=== PATIENT | female | born 1975 | race Caucasian/White ===

== ENCOUNTER 2021-01-22 17:20 | Emergency (ER) | payer MEDICAID ==
[~2021-01-22] VITALS: Ht 154.9 cm; Wt 77.1 kg
[2021-01-22 17:30] VITALS: BP 132/78
--- NOTE | 2021-01-22 17:35 | NUR ---
45 Y/O FEMALE BIBA FROM HOME C/C ALTERED. PER EMS, PT WAS DROPPED OFF AT HOME BY BOYFRIEND AND FAMILY FOUND HER ON GROUND ROLLING AROUND AND CRYING. WHEN MEDICS ARRIVED, PT WAS ROLLING ON THE GROUND, NOT RESPONDING TO QUESTIONS AND ONLY RESPONSIVE TO PAINFUL STIMULI. PT ADMITS TO ALCOHOL AND METH USE THIS MORNING. PT ANSWERING ALL QUESTIONS BUT REFUSING TO OPEN EYES. PMH:GASTRIC BYPASS ALLERGIES:CODEINE AND PCN
[2021-01-22] MEDS ORDERED: IBUPROFEN 400 MG TAB PO ONE (18:35)
[2021-01-22] MEDS ORDERED: ONDANSETRON 4 MG ODT PO ONE (18:35)
--- NOTE | 2021-01-22 19:16 | NUR ---
PATIENT REPORTS NO NAUSEA AND " I FEEL A LOT BETTER" AFTER POST DOCTORAL FELLOW. DENIES PAIN AT THIS TIME; 0/10. EMESIS PROVIDED.
[2021-01-22 20:18] LABS: BASOPHILS # (AUTO) 0.1 K/uL (0.00-0.22); BASOPHILS % (AUTO) 0.9 % (0.0-2.0); EOSINOPHILS % (AUTO) 0.7 % (0.0-4.0); HEMATOCRIT 21.2 % (36-48); LYMPHOCYTES # (AUTO) 0.9 K/uL (2.5-16.5); LYMPHOCYTES % (AUTO) 14.9 % (20.5-51.1); MEAN CORPUSCULAR HEMOGLOBIN 16 pg (27-31); MEAN CORPUSCULAR HGB CONC 29 g/dL (33-37); MEAN CORPUSCULAR VOLUME 54.4 fL (80-94); MONOCYTES # (AUTO) 0.3 K/uL (0.8-1.0); MONOCYTES % (AUTO) 4.1 % (1.7-9.3); NEUTROPHILS # (AUTO) 4.9 K/uL (1.8-7.7); NEUTROPHILS % (AUTO) 79.4 % (42.2-75.2); PLATELET COUNT (AUTO) 292 K/uL (140-450); RED CELL DISTRIBUTION WIDTH 20.8 % (11.6-13.7); WHITE BLOOD COUNT (AUTO) 6.2 K/uL (4.8-10.8)
[2021-01-22 20:32] LABS: ALBUMIN 3.4 g/dL (3.4-5.0); ANION GAP 10.4 (8-16); CARBON DIOXIDE 26.9 mmol/L (21-32); CREATININE 0.6 mg/dL (0.6-1.3); POTASSIUM 4.3 mmol/L (3.5-5.1); TOTAL BILIRUBIN 0.4 mg/dL (0.0-1.0)
--- NOTE | 2021-01-22 20:45 | NUR ---
PT GAVE PERMISSION TO GIVE UPDATE TO MOTHER, CARLOS. UPDATE PROVIDED AT THIS TIME.
[2021-01-22 21:04] VITALS: BP 127/86
--- NOTE | 2021-01-22 21:04 | NUR ---
Patient discharged with v/s stable. Written and verbal after care instructions given and explained. Patient verbalized understanding. Ambulatory with steady gait. All questions addressed prior to discharge. Advised to follow up with PMD.
== END 2021-01-22 21:04 | disposition home or self-care (01) ==
LOC: MED 17:20
DX: R41.82 Altered mental status, unspecified (principal); D64.9 Anemia, unspecified; F19.10 Other psychoactive substance abuse, uncomplicated; R51.9 Headache, unspecified; F15.10 Other stimulant abuse, uncomplicated; Z88.0 Allergy status to penicillin; Z88.5 Allergy status to narcotic agent; W19.XXXA Unspecified fall, initial encounter; Y93.89 Activity, other specified; Y92.89 Other specified places as the place of occurrence of the external cause; Y99.8 Other external cause status
CPT/HCPCS: 36415; 80053; 85025; 99283; Q0162

== ENCOUNTER 2022-01-08 03:10 | Emergency (ER) | payer MEDICAID ==
[~2022-01-08] VITALS: Ht 154.9 cm; Wt 72.6 kg
[2022-01-08 03:13] VITALS: BP 131/86
--- NOTE | 2022-01-08 03:18 | NUR ---
Patient ambulated to bed 4.
--- NOTE | 2022-01-08 03:25 | NUR ---
Dr. Walsh assessing patient.
[2022-01-08] MEDS ORDERED: IBUPROFEN 600 MG TAB PO ONE (03:55)
[2022-01-08] MEDS ORDERED: HYDROcodone/APAP 5/325 MG 1 TAB TAB PO ONE (04:00)
[2022-01-08] MEDS ORDERED: SULFAMETH/TRIMETH DS 800/160MG 1 TAB PO ONE (04:00)
[2022-01-08] MEDS ORDERED: diphenhydrAMINE 50 MG CAP PO ONE (04:00)
[2022-01-08] MEDS ORDERED: IBUP-2213 PO (04:06)
[2022-01-08] MEDS ORDERED: SULF-59 PO (04:06)
[2022-01-08] MEDS ORDERED: ACET-8386 PO (04:06)
[2022-01-08] MEDS ORDERED: DIPH-915 PO (04:08)
--- NOTE | 2022-01-08 04:22 | NUR ---
Patient given medication. Patient educated on not driving due to taking [place] and benadryl. Patient verbalized understanding and stated, "My boyfriend Rhys is driving me home." Patient has no further questions.
--- NOTE | 2022-01-08 05:03 | NUR ---
Patient stated, "No pain."
[2022-01-08 05:13] VITALS: BP 122/71
== END 2022-01-08 05:14 | disposition home or self-care (01) ==
LOC: MED 03:10
DX: S60.460A Insect bite (nonvenomous) of right index finger, initial encounter (principal); T78.49XA Other allergy, initial encounter; L08.89 Other specified local infections of the skin and subcutaneous tissue; Z86.2 Personal history of diseases of the blood and blood-forming organs and certain disorders involving the immune mechanism; Z90.49 Acquired absence of other specified parts of digestive tract; Z98.890 Other specified postprocedural states; Z79.899 Other long term (current) drug therapy; Z79.1 Long term (current) use of non-steroidal anti-inflammatories (NSAID); Z79.891 Long term (current) use of opiate analgesic; Z79.2 Long term (current) use of antibiotics; Z88.0 Allergy status to penicillin; Z88.5 Allergy status to narcotic agent; W57.XXXA Bitten or stung by nonvenomous insect and other nonvenomous arthropods, initial encounter; Y92.89 Other specified places as the place of occurrence of the external cause; Y93.89 Activity, other specified; Y99.8 Other external cause status
CPT/HCPCS: 99284; Q0163

== ENCOUNTER 2022-01-11 19:42 | Emergency (ER) | payer MEDICAID ==
[~2022-01-11] VITALS: Ht 154.9 cm; Wt 68.5 kg
[~2022-01-11 19:42] MED LIST: ACET-8386 PO; DIPH-915 PO; IBUP-2213 PO; SULF-59 PO
[2022-01-11 20:00] VITALS: BP 138/88
--- NOTE | 2022-01-11 20:04 | NUR ---
PT TO BED 7
[2022-01-11] MEDS ORDERED: HYDROcodone/APAP 10/325 MG 1 TAB TAB PO ONE (20:20)
--- NOTE | 2022-01-11 20:38 | NUR ---
46YR OLD FEMALE BIB SELF C/O FINGER PAIN X 5DAYS. PT WAS SEEN HERE ON [facility] FOR SAME C/O . BUG BITE TO 1ST DIGIT R HAND. REDNESS SWELLING TO FINGER 6/10 PAIN LEVEL. DENIES INJURY OR TRAUMA. ABX STARTED ON LAST ER VISIT. PT IS A&OX4 BED AT LOWEST POSITION. CODIENE PCN NO MED HX
--- NOTE | 2022-01-11 20:44 | NUR ---
XRAY AT BEDSIDE
--- NOTE | 2022-01-11 22:26 | NUR ---
PT RESTING RESP EVEN AND UNLABORED. PAIN LEVEL 2/10. HOB ELEVATED. PENDING DISPO
[2022-01-11] MEDS ORDERED: HYDR-5080 PO (23:31)
[2022-01-11] MEDS ORDERED: BACI1PAC6 TP (23:31)
[2022-01-11] MEDS ORDERED: CEPH500C16 PO (23:31)
--- NOTE | 2022-01-11 23:41 | NUR ---
Patient discharged with v/s stable. Written and verbal after care instructions given and explained. Patient alert, oriented and verbalized understanding of instructions. Ambulatory with steady gait. All questions addressed prior to discharge. ID band removed. Patient advised to follow up with PMD. Rx of BACITRACIN OINT KEFLEX HYDROCODONE given.
[2022-01-11 23:42] VITALS: BP 130/70
--- NOTE | 2022-01-11 23:43 | NUR ---
The patient's care was reviewed and supervised by Josephine Todd RN.
== END 2022-01-11 23:41 | disposition home or self-care (01) ==
LOC: MED 19:42
DX: L02.511 Cutaneous abscess of right hand (principal); F17.200 Nicotine dependence, unspecified, uncomplicated; Z88.0 Allergy status to penicillin; Z88.5 Allergy status to narcotic agent; Z98.890 Other specified postprocedural states
CPT/HCPCS: 73130; 99283; Q0092

== ENCOUNTER 2022-08-02 01:41 | Emergency (ER) | payer MEDICAID ==
[~2022-08-02] VITALS: Ht 154.9 cm; Wt 67.6 kg
[~2022-08-02 01:41] MED LIST changes: -ACET-8386 PO; +ACET-8905 PO; +BACI-416 TP; +CEPH500C16 PO; +HYDR-5080 PO
[2022-08-02 01:45] VITALS: BP 160/90
--- NOTE | 2022-08-02 01:48 | NUR ---
TO LOBBY A/W BED AMBULATORY
[2022-08-02] MEDS ORDERED: IBUPROFEN 600 MG TAB PO ONE (03:25)
[2022-08-02] MEDS ORDERED: NAPR-1717 PO (04:08)
[2022-08-02] MEDS ORDERED: PENI500T20 PO (04:08)
--- NOTE | 2022-08-02 04:08 | NUR ---
Dr. Gamble examining patient.
[2022-08-02] MEDS ORDERED: CLIN300C52 PO (04:12)
[2022-08-02 04:15] VITALS: BP 136/82
--- NOTE | 2022-08-02 04:15 | NUR ---
Patient discharged with v/s stable. Written and verbal after care instructions given and explained by Dr. Gamble. Patient alert, oriented and verbalized understanding of instructions. Ambulatory with steady gait. All questions addressed prior to discharge. ID band removed. Patient advised to follow up with PMD. Rx of Clidamycin and Naproxen given. Patient educated on indication of medication including possible reaction and side effects. Opportunity to ask questions provided and answered.
== END 2022-08-02 04:15 | disposition home or self-care (01) ==
LOC: MED 01:41
DX: K08.89 Other specified disorders of teeth and supporting structures (principal); Z98.890 Other specified postprocedural states; Z79.1 Long term (current) use of non-steroidal anti-inflammatories (NSAID); Z79.2 Long term (current) use of antibiotics; Z79.891 Long term (current) use of opiate analgesic; Z88.0 Allergy status to penicillin; Z88.5 Allergy status to narcotic agent
CPT/HCPCS: 99283

== ENCOUNTER 2023-09-10 21:30 | Inpatient (IN) | payer SELFPAY ==
[~2023-09-10] VITALS: Ht 154.9 cm; Wt 70.3 kg
[~2023-09-10 21:30] MED LIST changes: -BACI-416 TP; +BACI-418 TP; +CLIN300C52 PO; +NAPR-1717 PO
[2023-09-10 21:45] VITALS: BP 149/64; PULSE 74; RESP 14; TEMP 98; O2SAT 96
[2023-09-10 21:50] VITALS: O2SAT 96
[2023-09-10 22:22] LABS: BASOPHILS % (AUTO) 1.2 % (0.0-2.0); EOSINOPHILS % (AUTO) 0.8 % (0.0-4.0); LYMPHOCYTES # (AUTO) 1.2 K/uL (2.5-16.5); LYMPHOCYTES % (AUTO) 32.7 % (20.5-51.1); MEAN CORPUSCULAR HEMOGLOBIN 15 pg (27-31); MEAN CORPUSCULAR HGB CONC 28 g/dL (33-37); MEAN CORPUSCULAR VOLUME 52.3 fL (80-94); MONOCYTES # (AUTO) 0.3 K/uL (0.8-1.0); NEUTROPHILS % (AUTO) 56.3 % (42.2-75.2); PLATELET COUNT (AUTO) 239 K/uL (140-450); RED BLOOD CELL COUNT(AUTO) 2.31 MIL/uL (4.20-5.40); RED CELL DISTRIBUTION WIDTH 21.6 % (11.6-13.7); WHITE BLOOD COUNT (AUTO) 3.5 K/uL (4.8-10.8)
[2023-09-10 22:31] LABS: HEMATOCRIT 12.1 % (36-48); HEMOGLOBIN 3.4 g/dL (12.0-16.0)
[2023-09-10 22:36] LABS: CALCIUM 7.8 mg/dL (8.5-10.1); CARBON DIOXIDE 27.2 mmol/L (21-32); CREATININE 0.7 mg/dL (0.6-1.3); INR 0.94 (0.8-1.2); POTASSIUM 4.2 mmol/L (3.5-5.1); PROTHROMBIN TIME 9.9 secs (10.8-13.4)
[2023-09-11] VITALS (7 sets, daily range): BP systolic 108–135; BP diastolic 52–79; PULSE 60–111; RESP 17–18; TEMP 97.8–99.7; O2SAT 97–99
[2023-09-11] MEDS ORDERED: guaiFENesin DM 200/20 MG-10 ML 10 ML UDC PO PRN (02:00)
[2023-09-11] MEDS ORDERED: ONDANSETRON 4 MG/2 ML VIAL IM/IVP PRN (02:00)
[2023-09-11] MEDS ORDERED: POTASSIUM CHLORIDE 10 MEQ TABER PO PRN (02:00)
[2023-09-11] MEDS ORDERED: ZOLPIDEM 5 MG TAB PO PRN (02:00)
[2023-09-11] MEDS ORDERED: DOCUSATE SODIUM 100 MG GELCAP PO PRN (02:00)
[2023-09-11] MEDS ORDERED: ACETAMINOPHEN 650 MG/20.3 ML UDC PO PRN (03:25)
[2023-09-11] MEDS: ACETAMINOPHEN 325 MG TAB PO PRN (03:52)
[2023-09-11] MEDS: NACL 0.9% 1,000 ML IV SCH (03:54)
[2023-09-11] MEDS: PANTOPRAZOLE 40 MG TABEC PO SCH (08:36)
[2023-09-11 14:21] LABS: EOSINOPHILS # (AUTO) 1.7 K/uL (0-0.4); HEMATOCRIT 22.8 % (36-48); MEAN CORPUSCULAR HEMOGLOBIN 20 pg (27-31); MEAN CORPUSCULAR HGB CONC 31 g/dL (33-37); MEAN CORPUSCULAR VOLUME 65.6 fL (80-94); NEUTROPHILS # (AUTO) 2.5 K/uL (1.8-7.7); PLATELET COUNT (AUTO) 203 K/uL (140-450); RED BLOOD CELL COUNT(AUTO) 3.48 MIL/uL (4.20-5.40)
[2023-09-11 14:38] LABS: ALBUMIN 2.7 g/dL (3.4-5.0); ANION GAP 11.6 (8-16); CALCIUM 7.1 mg/dL (8.5-10.1); CARBON DIOXIDE 26.1 mmol/L (21-32); CREATININE 0.6 mg/dL (0.6-1.3); MAGNESIUM 1.9 mg/dL (1.8-2.4); PHOSPHORUS 2.7 mg/dL (2.5-4.9); POTASSIUM 3.7 mmol/L (3.5-5.1); TOTAL BILIRUBIN 1.3 mg/dL (0.0-1.0); TOTAL PROTEIN, SERUM 5.9 g/dL (6.4-8.2)
[2023-09-11 15:41] LABS: WHITE BLOOD COUNT (AUTO) 4.2 K/uL (4.8-10.8)
[2023-09-11 15:42] LABS: RED CELL DISTRIBUTION WIDTH 32.9 % (11.6-13.7)
[2023-09-11 23:40] LABS: HEMATOCRIT 24.3 % (36-48); HEMOGLOBIN 7.7 g/dL (12.0-16.0)
[2023-09-12] VITALS: BP 159/86; PULSE 62; PULSE 67; RESP 18; TEMP 97.2; O2SAT 95
[2023-09-12 04:00] VITALS: BP 152/74; PULSE 56; PULSE 61; RESP 18; TEMP 98.4; O2SAT 96
[2023-09-12 06:59] LABS: BASOPHILS # (AUTO) 0.1 K/uL (0.00-0.22); BASOPHILS % (AUTO) 1.8 % (0.0-2.0); EOSINOPHILS # (AUTO) 0.1 K/uL (0-0.4); EOSINOPHILS % (AUTO) 3.5 % (0.0-4.0); HEMATOCRIT 24.6 % (36-48); HEMOGLOBIN 7.8 g/dL (12.0-16.0); LYMPHOCYTES % (AUTO) 33.9 % (20.5-51.1); MEAN CORPUSCULAR HEMOGLOBIN 21 pg (27-31); MEAN CORPUSCULAR HGB CONC 32 g/dL (33-37); MEAN CORPUSCULAR VOLUME 67.1 fL (80-94); MONOCYTES # (AUTO) 0.4 K/uL (0.8-1.0); MONOCYTES % (AUTO) 13.7 % (1.7-9.3); NEUTROPHILS # (AUTO) 1.4 K/uL (1.8-7.7); NEUTROPHILS % (AUTO) 47.1 % (42.2-75.2); PLATELET COUNT (AUTO) 171 K/uL (140-450); RED BLOOD CELL COUNT(AUTO) 3.67 MIL/uL (4.20-5.40); RED CELL DISTRIBUTION WIDTH 32.2 % (11.6-13.7)
[2023-09-12 07:13] LABS: ALBUMIN 2.5 g/dL (3.4-5.0); ANION GAP 10.3 (8-16); CALCIUM 7.2 mg/dL (8.5-10.1); CARBON DIOXIDE 26.6 mmol/L (21-32); CREATININE 0.6 mg/dL (0.6-1.3); POTASSIUM 3.9 mmol/L (3.5-5.1); TOTAL BILIRUBIN 1.3 mg/dL (0.0-1.0); TOTAL PROTEIN, SERUM 5.7 g/dL (6.4-8.2)
[2023-09-12 08:00] VITALS: BP 139/78; PULSE 53; PULSE 58; RESP 18; TEMP 98; O2SAT 100
[2023-09-12 09:47] VITALS: PULSE 58
[2023-09-12 09:48] VITALS: RESP 18; O2SAT 98
[2023-09-12 10:34] VITALS: BP 139/78; PULSE 58; RESP 18; TEMP 98
== END 2023-09-12 11:37 | disposition home or self-care (01) | DRG 812 ==
LOC: MED 21:30 → MTU 09-11 01:55
PROVIDERS: ADMIT Student in an Organized Health Care Education/Training Program; ATTEND Student in an Organized Health Care Education/Training Program
PROC: 30233N1 Transfusion of Nonautologous Red Blood Cells into Peripheral Vein, Percutaneous Approach (ICD-10-PCS; principal; 2023-09-10)
DX: D64.9 Anemia, unspecified (principal); Z88.0 Allergy status to penicillin; Z79.899 Other long term (current) drug therapy; Z98.84 Bariatric surgery status; Z88.5 Allergy status to narcotic agent
CPT/HCPCS: 36415; 36430; 76856; 80048; 80053; 83735; 84100; 85018; 85025; 85610; 86886; 86900; 86901; 86920; 87081; 93005; 99285; P9016